=== PATIENT | female | born 1960 | race Caucasian/White ===

== ENCOUNTER 2016-06-21 17:44 | Emergency (ER) | payer OTHER ==
[2016-06-21 17:56] VITALS: O2SAT 96
--- NOTE | 2016-06-21 18:30 | DX ---
Right ankle - 3 views Indication: Rolled ankle. Pain. Technique: AP, mortise, and lateral views. Comparison: None Findings: The bones are anatomically aligned. A tiny 1 x 2 mm age-indeterminate chip fracture Is raissa cent the tip of the medial malleolus (best demonstrated on the mortise view). No distal fibular fract ure. Moderate lateral soft tissue swelling. The ankle mortise is preserved. Impression: 1. Age indeterminate tiny chip fracture off the tip of medial malleolus. 2. No distal fibular fracture or derangement of the mortise.
[2016-06-21] MEDS ORDERED: IBUPROFEN 600 MG TAB PO ONE (18:43)
[2016-06-21] MEDS ORDERED: HYDROCOD/APAP 5/325 PREPACK#6 BTL TAKEHOME ONE (18:44)
--- NOTE | 2016-06-21 18:48 | EDPHY ---
H & P Smoking Status: Never smoked Time Seen by Provider: 06/21/16 17:59 HPI/ROS: CHIEF COMPLAINT: right ankle pain HISTORY OF PRESENT ILLNESS: 56-year-old female presents the emergency department complaining of right ankle pain. Patient had an inversion injury and complains of lateral ankle pain. She denies previous pain to this ankle. She reports a lot of difficulty walking, she is able to hobble with a lot of pain. She denies head strike, no neck pain, no numbness and tingling to this foot, she denies other injuries. (Nicki Terrell) Physical Exam: General appearance: alert no distress right ankle: There is swelling and tenderness over the lateral ankle. TTP to ATFL and CFL. Mild medial ankle tenderness. There is no tenderness over the achilles tendon. The foot is non-tender without swelling. No TTP over 5th metatarsal. Neurologic exam: The patient has normal sensation and motor function distal to the injury. Vascular exam: Normal pulses and capillary refill in the foot (Nicki Terrell) Constitutional: Initial Vital Signs Temperature (C) 37 C 06/21/16 17:45 Heart Rate 76 06/21/16 17:45 Respiratory Rate 18 06/21/16 17:45 Blood Pressure 127/101 H 06/21/16 17:45 O2 Sat (%) 96 06/21/16 17:45 O2 Delivery Mode Room Air Allergies/Adverse Reactions: Sulfa (Sulfonamide Antibiotics) Allergy (Mild, Verified 06/21/16 17:56) nausea Home Medications: Medication Instructions Recorded Atenolol [Tenormin 50 mg (*)] 50 mg PO 06/21/16 Cholesterol Med 06/21/16 Hydrocodone/APAP 5/325 [[place] 1 tab PO Q4H PRN #7 tab 06/21/16 5/325] Levothyroxine [Synthroid 100 mcg 100 mcg PO DAILY06 06/21/16 (*)] MDM/Departure - MDM Diagnostics: Ankle x-ray independently reviewed by me- Findings: The bones are anatomically aligned. A tiny 1 x 2 mm age- indeterminate chip fracture Is adjacent the tip of the medial malleolus (best demonstrated on the mortise view) . No distal fibular fracture. Moderate lateral soft tissue swelling. The ankle mortise is preserved. Impression: 1. Age indeterminate tiny chip fracture off the tip of medial malleolus. 2. No distal fibular fracture or derangement of the mortise. Dictated By: Fuad Olmos MD (XanderNicki L) Medications Given: Discontinued Medications Acetaminophen/Hydrocodone Bitart ([place] 5/325mg Prepack#6) 1 btl TAKEHOME EDNOW ONE Stop: 06/21/16 18:45 Last Admin: 06/21/16 18:47 Dose: 1 btl Ibuprofen (Motrin) 600 mg PO EDNOW ONE Stop: 06/21/16 18:44 Last Admin: 06/21/16 18:47 Dose: 600 mg ED Course/Re-evaluation: The patient was evaluated and managed by the midlevel provider. My co-signature indicates that I have reviewed this chart and I agree with the findings and plan of care as documented. I am the secondary supervising physician. (Lata Aguirre) - Depart Disposition: Home, Routine, Self-Care Clinical Impression: Moderate right ankle sprain Qualifiers: Encounter type: initial encounter Qualifier Code: (S93.401A) Sprain of unspecified ligament of right ankle, initial encounter Condition: Good Instructions: Ankle Sprain (ED), Hydrocodone/Acetaminophen (By mouth) Additional Instructions: Rest, ice, elevate, take 600mg of ibuprofen every 8 hours with food for 3-5 days as needed for pain and swelling. Take [place] for severe pain. Use crutches for weight-bearing at all times. Follow up with the orthopedist at 1st available appointment, call in the morning to schedule this. Return to the emergency department for any numbness, tingling, discoloration of you limb or other concerns. You have been prescribed a narcotic. This can cause drowsiness. Do not drive or operate any machinery while taking this. This can also cause constipation. Drink plenty of water, eat fiber and take stool softeners over the counter as needed. Prescriptions: Hydrocodone/APAP 5/325 [[place] 5/325] 1 tab PO Q4H PRN #7 tab PRN Reason: Pain, Moderate Referrals: Jamie Brady MD [Medical Doctor] - As per Instructions (Orthopedist on-call)
[2016-06-21 18:58] VITALS: BP 124/98; PULSE 74; RESP 16; TEMP 98.2
== END 2016-06-21 19:04 | disposition home or self-care (01) ==
DX: S93.401A Sprain of unspecified ligament of right ankle, initial encounter (principal); X58.XXXA Exposure to other specified factors, initial encounter

== ENCOUNTER → 2017-05-13 | Outpatient (CLI) | payer OTHER | LOC: BMCIMAGING 13:20 | PROVIDERS: ATTEND Internal Medicine | DX: Z12.31 Encounter for screening mammogram for malignant neoplasm of breast (principal); Z80.3 Family history of malignant neoplasm of breast | CPT/HCPCS: G0202 ==